=== PATIENT | female | born 1970 | race African-American/Black ===

== ENCOUNTER → 2017-06-17 | Outpatient (CLI) | payer BC ==
[~2017-06-17] VITALS: Ht 162.6 cm; Wt 125.5 kg
[~2017-06-17] MED LIST: HCTZ 25MG TAB25 MG PO; LASIX 20MG TABL20 MG PO; PULMICORT; ZYRTEC 10MG; ZYRTEC 10MG10 MG PO
[2017-06-17 13:43] VITALS: BP 163/93; PULSE 106
== END ==
LOC: COL.RAD 13:08
DX: Z01.89 Encounter for other specified special examinations (principal)

== ENCOUNTER → 2017-06-25 | Outpatient (CLI) | payer BC ==
[~2017-06-25] VITALS: Ht 162.6 cm; Wt 126.1 kg
[2017-06-25 09:49] VITALS: BP 146/79; PULSE 96
== END ==
LOC: COL.RAD 09:00
DX: M54.41 Lumbago with sciatica, right side (principal); G89.29 Other chronic pain
CPT/HCPCS: J3301

== ENCOUNTER → 2017-07-19 | Outpatient (CLI) | payer BC | LOC: MC.RAD 13:00 | DX: Z12.31 Encounter for screening mammogram for malignant neoplasm of breast (principal) ==

== ENCOUNTER 2021-02-17 07:42 | Day surgery (SDC) | payer OTHER ==
[~2021-02-17] VITALS: Ht 165.1 cm; Wt 131.0 kg
[2021-02-17 08:22] VITALS: BP 186/90; PULSE 108; TEMP 97.6
[2021-02-17] MEDS ORDERED: LASIX 40MG TABL40 MG PO (08:29)
[2021-02-17] MEDS ORDERED: OZEMPIC0.25 MG/0. SQ (08:31)
[2021-02-17] MEDS ORDERED: GLUCOPHAGE500 MG/TAB PO (08:31)
[2021-02-17] MEDS ORDERED: XALATAN EYE DROPS OU (08:32)
[2021-02-17] MEDS ORDERED: PROVENTIL4 MG (08:33)
--- NOTE | 2021-02-17 10:07 | NUR ---
PATIENT TO RECOVERY BAY 3 POST PROCEDURE VIA CART ACCOMPANIED BY Maribell SAINZ RN. PATIENT AMBULATORY TO CHAIR WITH 2 PERSON ASSIST. MADE COMFORTABLE IN CHAIRT. GIVEN WARM BLANKETS. VITAL SIGNS TAKEN, WNL. REPORT FROM Maribell SAINZ RN. GIVEN MUFFIN AND APPLE JUICE. DENIES PAIN OR NAUSEA.
[2021-02-17 10:08] VITALS: BP 127/73; PULSE 91; TEMP 97.8
--- NOTE | 2021-02-17 10:11 | NUR ---
AT BEDSIDE TO DISCUSS WITH PATIENT FINDINGS OF PROCEDURE
[2021-02-17 10:15] VITALS: BP 124/68; PULSE 89
--- NOTE | 2021-02-17 10:27 | NUR ---
IV SITE TO RIGHT FOREARM DISCONTINUED. NO REDNESS OR SWELLING. PRESSURE APPLIED. SECURED WITH COTTON BALL AND COBAN
[2021-02-17 10:30] VITALS: BP 107/70; PULSE 91
[2021-02-17 10:45] VITALS: BP 120/70; PULSE 87
--- NOTE | 2021-02-17 10:55 | NUR ---
PATIENT GIVEN HARD COPIES OF DISMISSAL INSTRUCTIONS AND VERBAL EXPLANATION GIVEN. PATIENT GIVES VERBAL UNDERSTANDING AND DENIES QUESTIONS. PATIENT SIGNS IN ACKNOWLEDGMENT OF RECEIPT.
--- NOTE | 2021-02-17 11:07 | NUR ---
PATIET ESCORTED OUT OF UNIT VIA WHEELCHAIR BY STAFF TO WAITING AFTER SCHO[employer] PROGRAM ASSISTANT. ASSISTED TO VEHICLE.
== END 2021-02-17 11:07 | disposition home or self-care (01) ==
LOC: SDCO 07:42
DX: Z12.11 Encounter for screening for malignant neoplasm of colon (principal); K63.5 Polyp of colon; K57.30 Diverticulosis of large intestine without perforation or abscess without bleeding; I10 Essential (primary) hypertension; E66.9 Obesity, unspecified; G47.30 Sleep apnea, unspecified; J44.1 Chronic obstructive pulmonary disease with (acute) exacerbation; R73.01 Impaired fasting glucose; Z20.822 Contact with and (suspected) exposure to COVID-19; Z98.51 Tubal ligation status
CPT/HCPCS: J2704; J7120

== ENCOUNTER 2023-08-30 07:51 | Day surgery (SDC) | payer OTHER ==
[~2023-08-30] VITALS: Ht 162.6 cm; Wt 122.7 kg
[~2023-08-30 07:51] MED LIST changes: +GLUCOPHAGE500 MG/TAB PO; +LASIX 40MG TABL40 MG PO; +OZEMPIC0.25 MG/0. SQ; +PRILOTC; +PROVENTIL4 MG; +XALATAN EYE DROPS OU
[2023-08-30] MEDS ORDERED: PROAIR HFA0.09 MG/AC IH (09:27)
[2023-08-30] MEDS ORDERED: LOTRISONE CREAM15 GM TP (09:30)
[2023-08-30] MEDS ORDERED: XALATAN EYE DROPS OD (09:30)
[2023-08-30] MEDS ORDERED: MULTIPLE VITAMI1 CAP PO (09:31)
[2023-08-30] MEDS ORDERED: GLUCOPHAGE500 MG/TAB PO (09:31)
[2023-08-30] MEDS ORDERED: OZEMPIC1 MG/0.71 SQ (09:32)
[2023-08-30 09:33] VITALS: BP 155/76; PULSE 93; TEMP 97.8
[2023-08-30] MEDS ORDERED: NORCO 325 MG-51 TAB PO (12:32)
[2023-08-30 13:35] VITALS: BP 136/60; PULSE 87; TEMP 97.6
[2023-08-30 13:50] VITALS: BP 132/64; PULSE 79
[2023-08-30 14:05] VITALS: BP 138/74; PULSE 87
[2023-08-30 14:20] VITALS: BP 136/72; PULSE 85
[2023-08-30 14:50] VITALS: BP 136/78; PULSE 87
--- NOTE | 2023-08-30 17:39 | NUR ---
[id number]: PT TO RECOVERY BAY 7 FROM PACU S/P ROBOTIC VENTRAL HERNIA REPAIR STUPOROUS AND ORIENTED, PLACED ON MONITOR, VSS ON 3L NC RECEIVED REPORT AND ASSUMED CARE OF PT FROM HOA ZENDEJAS PT COMPLAINING OF A LOT OF PAIN IN PACU, BUT ALSO FAIRLY SEDATED, REQUIRING 3L O2 TO MAINTAIN SATS. ATTEMPTING TO WEAN OFF O2 AND CONTROL PAIN SINCE ARRIVAL TO [facility] [place] - PT ED ON NEED TO BALANCE MEDS & MINIMIZE SIDE EFFECTS - VERBALIZES UNDERSTANDING. REPOSITIONED AND WARM BLANKETS TO ABDOMEN REFRESHED PERIODICALLY FOR COMFORT SUPPORT PERSON/FRIEND BROUGHT TO BEDSIDE PROVIDED FOOD/FLUIDS AFTER MORE AWAKE, TOLERATING WELL C/O SEVERE ABDOMINAL PAIN TO ABDOMEN WHEN AWAKE, 1MG DILAUDID IVP ADMIN, WHICH WAS ULTIMATELY SUCCESSFUL IN BRINGING PAIN TO A TOLERABLE LEVEL, MED TOLERATED WELL BY PT (L&OX4); PT DECLINING FURTHER INTERVENTION FOR PAIN - WILL PICKUP D/C MEDS ON WAY HOME. PT HAS REMAINED L&O, NAD, VSS ON RA, TOLERATING PO, IS WITHOUT SIGNIFICANT COMPLAINT, WITH SLOW STEADY GAIT BY END OF STAY IV D/C'D. D/C INSTRUCTIONS, FOLLOW UP REVIEWED AND HANDED TO PT. ALL QUESTIONS AND CONCERNS ADDRESSED TO PT SATISFACTION. TAKEN TO EXIT VIA W/C WITH ALL BELONGINGS AND PAPERWORK IN HAND, ASSISTED INTO PASSENGER SEAT OF POV. SON TO DRIVE HOME. FRIEND/SUPPORT PERSON TO FOLLOW
== END 2023-08-30 15:30 | disposition home or self-care (01) ==
LOC: SDCO 07:51
DX: K43.6 Other and unspecified ventral hernia with obstruction, without gangrene (principal); K42.0 Umbilical hernia with obstruction, without gangrene; G47.33 Obstructive sleep apnea (adult) (pediatric); E66.01 Morbid (severe) obesity due to excess calories; Z68.42 Body mass index [BMI] 45.0-49.9, adult; Z99.81 Dependence on supplemental oxygen
CPT/HCPCS: J0330; J0690; J1100; J1170; J1885; J2405; J2704; J3010; J7120